=== PATIENT | male | born 1945 | race Caucasian/White ===

== ENCOUNTER 2017-08-24 15:40 | Emergency (ER) | payer MEDICARE ==
[2017-08-24 16:07] VITALS: BP 124/77
[2017-08-24] MEDS ORDERED: Lidocaine 1% MPF* 2 ML VIAL INJ ONE (16:20)
[2017-08-24] MEDS ORDERED: Lidocaine 2% PF * 5 ML VIAL ONE (16:25)
--- NOTE | 2017-08-24 16:59 | UC ---
Dominic Hassan Stephanie, scribed for Leroy Cline MD on 08/24/17 at 1633 . Complaint Male HPI - HPI Summary HPI Summary: The pt is a 72 y/o M presenting to with c/o L groin swelling that began today. Symptoms include pain and redness in L inguinal pelvic area. Aggravating factors include movement. - History of Current Complaint Chief Complaint: UCSkin Stated Complaint: SWELLING IN GROIN Time Seen by Provider: 08/24/17 16:08 Hx Obtained From: Patient Onset/Duration: Gradual Onset, Lasting Days, Still Present Timing: Constant Severity Currently: Moderate Pain Intensity: 7 Pain Scale Used: 0-10 Numeric Location: Groin - L Aggravating Factor(s): Other - ambulating Alleviating Factor(s): Nothing - Allergies/Home Medications Allergies/Adverse Reactions: Allergies Allergy/AdvReac Type Severity Reaction Status Date / Time No Known Allergies Allergy Verified 08/24/17 16:07 PMH/Surg Hx/FS Hx/Imm Hx - Surgical History Surgical History: Yes Surgery Procedure, Year, and Place: 10/23/2015 CYSTOSCOPY, CYSTOLITHOPAXY, BLADDER BIOPSIES, [facility] - Family History Known Family History: Positive: None - Social History Occupation: Retired Lives: With Family Alcohol Use: Occasionally Alcohol Amount: 2-3 PER WEEK Substance Use Type: None Substance Use Comment - Amount & Last Used: MARIJUANA- OCCASIONALLY- LAST TIME A FEW Smoking Status (MU): Never Smoked Tobacco Have You Smoked in the Last Year: No Review of Systems Constitutional: Negative Skin: Negative Eyes: Negative ENT: Negative Respiratory: Negative Cardiovascular: Negative Gastrointestinal: Negative Genitourinary: Other - pain, redness, and swelling in L inguinal/pelvic area Motor: Negative Neurovascular: Negative Musculoskeletal: Negative Neurological: Negative Psychological: Negative All Other Systems Reviewed And Are Negative: Yes Physical Exam - Summary Physical Exam Summary: VITAL SIGNS: Reviewed. GENERAL: Patient is a well-developed and nourished MALE who is lying comfortable in the stretcher. Patient is not in any acute respiratory distress. HEAD AND FACE: Normocephalic EYES: PERRLA, EOMI x 2. EARS: Hearing grossly intact. MOUTH: Oropharynx within normal limits. NECK: Supple, trachea is midline, no adenopathy, no JVD, no carotid bruit. CHEST: Symmetric, no tenderness at palpation LUNGS: Clear to auscultation bilaterally. No wheezing or crackles. CVS: Regular rate and rhythm, S1 and S2 present, no murmurs or gallops appreciated. ABDOMEN: Soft, non-tender. Bowel sounds are normal. No abdominal abnormal pulsations. EXTREMITIES: Full ROM in all major joints, no edema, no cyanosis or clubbing. NEURO: Alert and oriented x 3. No acute neurological deficits. Speech is normal and follows commands. SKIN: Dry and warm, abscess in L pelvic/ L inguinal area Triage Information Reviewed: Yes Vital Signs: Initial Vital Signs Temp 98.6 F 08/24/17 16:03 Pulse 67 08/24/17 16:03 Resp 16 08/24/17 16:03 BP 124/77 08/24/17 16:03 Pulse Ox 98 08/24/17 16:03 Vital Signs Reviewed: Yes Procedures - Incision and Drainage Left Groin Site: L pelvic/ L inguinal area Anesthesia: Lidocaine - 3 cc Instrument(s): Other - 11 blade Packing: Drain Complaint Male Course/Dx - Course Course Of Treatment: 72-year-old male with an abscess and cellulitis. I&D was performed. No complications. Culture sent. Patient was given a prescription for Bactrim. He will return to the urgent care or follow up with the primary care physician 2-3 days for wound Check. He was asked to the emergency room if symptoms worsen. He understands and agrees - Differential Dx/Diagnosis Provider Diagnoses: Abscess and cellulitis Discharge - Sign-Out/Discharge Documenting (check all that apply): Discharge/Admit/Transfer - Discharge Plan Condition: Stable Disposition: HOME Prescriptions: Cephalexin CAP* [Keflex CAP*] 500 mg PO TID #30 cap Patient Education Materials: Cellulitis (ED), Abscess (ED) Referrals: Danny Rodriguez MD [Primary Care Provider] - Additional Instructions: Take medications as indicated. Return to the urgent care if symptoms worsen. Return to the urgent care or follow up with the primary care physician in 2-3 days for wound check. - Billing Disposition and Condition Condition: STABLE Disposition: Home The documentation as recorded by the Dominic wesley Stephanie accurately reflects the service I personally performed and the decisions made by Son swanson Walter, MD.
--- NOTE | 2017-08-26 10:18 | UC ---
- Progress Note Progress Note: wound culture no growth day #1 no change in treatment 08/26/2017 [facility] Discharge - Sign-Out/Discharge Documenting (check all that apply): Post-Discharge Follow Up - Discharge Plan Condition: Stable Disposition: HOME Prescriptions: Cephalexin CAP* [Keflex CAP*] 500 mg PO TID #30 cap Patient Education Materials: Cellulitis (ED), Abscess (ED) Referrals: Danny Rodriguez MD [Primary Care Provider] - Additional Instructions: Take medications as indicated. Return to the urgent care if symptoms worsen. Return to the urgent care or follow up with the primary care physician in 2-3 days for wound check. - Billing Disposition and Condition Condition: STABLE Disposition: Home
== END 2017-08-24 17:01 | disposition home or self-care (01) ==
LOC: UCEAST 15:40
DX: L02.214 Cutaneous abscess of groin (principal); L03.314 Cellulitis of groin
CPT/HCPCS: 10060; 81003; 87070; 87205; 87640; 87641; 99212; G0463

== ENCOUNTER 2018-03-23 15:44 | Emergency (ER) | payer MEDICARE ==
[2018-03-23 16:09] VITALS: BP 137/83
--- NOTE | 2018-03-23 16:57 | ED ---
Abdominal Pain/Male - HPI Summary HPI Summary: abdominal pain over the last several days. chills today. Pain in the abdomen has worsened over the last several days. No vomiting . in the ER the patient passed several small stones - History of Current Complaint Chief Complaint: UCAbdominalPain Stated Complaint: ABDOMINAL PAIN Time Seen by Provider: 03/23/18 16:27 Hx Obtained From: Patient Onset/Duration: Gradual Onset Timing: Lasting Days Severity Currently: Moderate Pain Intensity: 4 Location: Discrete At: LLQ Character: Sharp Aggravating Factor(s): Nothing Alleviating Factor(s): Nothing Associated Signs And Symptoms: Positive: Negative - Allergies/Home Medications Allergies/Adverse Reactions: Allergies Allergy/AdvReac Type Severity Reaction Status Date / Time No Known Allergies Allergy Verified 03/23/18 16:10 PMH/Surg Hx/FS Hx/Imm Hx Previously Healthy: Yes Endocrine/Hematology History: Reports: Hx Thyroid Disease - HYPOTHYROIDISM Musculoskeletal History: Reports: Other Musculoskeletal History - RIGHT HIP SCIATIC PROBLEMS Sensory History: Denies: Hx Contacts or Glasses, Hx Hearing Aid Opthamlomology History: Denies: Hx Contacts or Glasses - Surgical History Surgery Procedure, Year, and Place: 10/23/2015 CYSTOSCOPY, CYSTOLITHOPAXY, BLADDER BIOPSIES, [facility] Hx Anesthesia Reactions: No Infectious Disease History: No Infectious Disease History: Reports: Hx Shingles Denies: History Other Infectious Disease, Traveled Outside the [place] in Last 30 Days - Family History Known Family History: Positive: None - Social History Alcohol Use: Occasionally Alcohol Amount: 2-3 PER WEEK Substance Use Type: Reports: None Substance Use Comment - Amount & Last Used: MARIJUANA- OCCASIONALLY- LAST TIME A FEW Smoking Status (MU): Never Smoked Tobacco Have You Smoked in the Last Year: No Review of Systems - ROS Summary Review of Systems Summary: hx. of bladder stones in the past Positive: Fever, Chills Eyes: Negative ENT: Negative Cardiovascular: Negative Respiratory: Negative Positive: Abdominal Pain Genitourinary: Negative All Other Systems Reviewed And Are Negative: Yes Physical Exam Vital Signs On Initial Exam: Initial Vitals Temp Pulse Resp BP Pulse Ox 37.7 C 65 16 137/83 99 03/23/18 16:02 03/23/18 16:02 03/23/18 16:02 03/23/18 16:02 03/23/18 16:02 Diagnostics - Vital Signs Vital Signs Temp Pulse Resp BP Pulse Ox 01/16/19 16:02 37.7 C 65 16 137/83 99 - Laboratory Lab Statement: Any lab studies that have been ordered have been reviewed, and results considered in the medical decision making process. Abdominal Pain Fem Course/Dx - Diagnoses Provider Diagnoses: Diverticulitis large intestine, Kidney stones Is Visit Related: No Discharge - Sign-Out/Discharge Documenting (check all that apply): Patient Departure All imaging exams completed and their final reports reviewed: No Studies - Discharge Plan Condition: Fair Disposition: HOME Prescriptions: Amoxicillin/Clavulanate TAB* [Augmentin TAB 875*] 875 mg PO BID #14 tab Patient Education Materials: Kidney Stones (ED), Diverticulitis (ED) Referrals: Danny Rodriguez MD [Primary Care Provider] - - Billing Disposition and Condition Condition: FAIR Disposition: Home
== END 2018-03-23 17:49 | disposition home or self-care (01) ==
LOC: UCEAST 15:44
DX: K57.32 Diverticulitis of large intestine without perforation or abscess without bleeding (principal); N20.0 Calculus of kidney
CPT/HCPCS: 81003; 82365; 99212; G0463